=== PATIENT | female | born 1950 | race Two or more races ===

== ENCOUNTER 2022-11-22 23:41 | Emergency (ER) | payer OTHER ==
[~2022-11-22] VITALS: Ht 160 cm; Wt 91.6 kg
[2022-11-22] MEDS ORDERED: COZAAR100 MG (23:56)
[2022-11-22] MEDS ORDERED: LIPITOR40 M1 (23:57)
[2022-11-22] MEDS ORDERED: ADULT LOW DOSE81 M1 (23:57)
[2022-11-22] MEDS ORDERED: SYNTHROID50 MCG (23:57)
[2022-11-22] MEDS ORDERED: ACTOS15 MG (23:57)
[2022-11-22] MEDS ORDERED: LANTUS SOL100 UNIT/1 (23:58)
[2022-11-22] MEDS ORDERED: HUMALOG100 UNIT/2 (23:58)
== END 2022-11-23 01:37 | disposition home or self-care (01) ==
LOC: ER 23:41
DX: S00.83XA Contusion of other part of head, initial encounter (principal); W07.XXXA Fall from chair, initial encounter; Y93.9 Activity, unspecified; Y92.59 Other trade areas as the place of occurrence of the external cause; Y99.9 Unspecified external cause status